=== PATIENT | female | born 1995 | race Caucasian/White ===

== ENCOUNTER 2017-09-13 09:51 | Inpatient (IN) | payer SELFPAY ==
[2017-09-13] MEDS ORDERED: RINGERS SOLUTION,LACTATED 1,000 ML IV PRN (10:07)
[2017-09-13] MEDS ORDERED: PENICILLIN G POTASSIUM 5,000,000 UNIT in DEXTROSE 5%-WATER 100 ML IV ONE (10:07)
[2017-09-13] MEDS ORDERED: PENICILLIN G-K 5 MILLION UNIT VIAL ONE ×2 (10:11→13:42)
[2017-09-13] MEDS ORDERED: OXYTOCIN/NORMAL SALINE 20 UNIT/1,000 ML RTUINJ IV PRN ×2 (10:19→14:24)
[2017-09-13] MEDS ORDERED: MISOPROSTOL 0.2 MG TABLET ONE (11:14)
[2017-09-13] MEDS ORDERED: OXYTOCIN/NORMAL SALINE 20 UNIT/1,000 ML RTUINJ ONE (11:15)
[2017-09-13] MEDS ORDERED: LIDOCAINE 1% INJ-PF (10 MG/ML) 30 ML SDV ONE (11:15)
[2017-09-13 12:11] LABS: HEMATOCRIT 39.8 % (36.0-47.0); HEMOGLOBIN 13.4 g/dL (12.0-15.5); MEAN CORPUSCULAR HEMOGLOBIN 28.2 pg (27.0-33.4); MEAN CORPUSCULAR HGB CONC 33.6 g/dL (32.0-36.0); MEAN CORPUSCULAR VOLUME 84 fl (80-97); PLATELET COUNT 202 10^3/uL (150-450); RED BLOOD COUNT 4.74 10^6/uL (3.72-5.28); RED CELL DISTRIBUTION WIDTH 15.8 % (11.5-14.0); WHITE BLOOD COUNT 15.1 10^3/uL (4.0-10.5)
[2017-09-13 12:30] LABS: ABSOLUTE LYMPHOCYTES# (MANUAL) 0.6 10^3/uL (0.5-4.7); ABSOLUTE MONOCYTES # (MANUAL) 0.8 10^3/uL (0.1-1.4); ABSOLUTE NEUTROPHILS# (MANUAL) 13.7 10^3/uL (1.7-8.2); ANISOCYTOSIS SLIGHT; BASOPHILS % (MANUAL) 0 % (0-2); EOSINOPHILS % (MANUAL) 0 % (0-6); LYMPHOCYTES % (MANUAL) 4 % (13-45); MONOCYTES % (MANUAL) 5 % (3-13); PLATELET COMMENT ADEQUATE; SEGMENTED NEUTROPHILS % (MAN) 91 % (42-78); TOTAL CELLS COUNTED 100
[2017-09-13] MEDS ORDERED: PENICILLIN G POTASSIUM 2,500,000 UNIT in DEXTROSE 5%-WATER 50 ML IV SCH (14:08)
[2017-09-13] MEDS ORDERED: DIBUCAINE 1% OINTMENT 28 GM TP PRN (14:24)
[2017-09-13] MEDS ORDERED: PSEUDOEPHEDRINE HCL 30 MG TABLET PO PRN (14:24)
[2017-09-13] MEDS ORDERED: GLYCERIN/WITCH HAZEL LEAF 1 EACH MED..PAD TP PRN (14:24)
[2017-09-13] MEDS ORDERED: PROMETHAZINE HCL 25 MG SUPP.RECT PR PRN (14:24)
[2017-09-13] MEDS ORDERED: PROMETHAZINE HCL 25 MG TABLET PO PRN (14:24)
[2017-09-13] MEDS ORDERED: DIPH/PERTUSS(ACELL)/TETANUS VAC/PF 0.5 ML SYR (>=10YO) IM PRN (14:24)
[2017-09-13] MEDS ORDERED: NA PHOS,M-B/NA PHOS,DI-BA (ADULT) 133 ML ENEMA PR PRN (14:24)
[2017-09-13] MEDS ORDERED: MEASLES,MUMPS&RUBELLA VACC/PF 0.5 ML VIAL SUBCUT PRN (14:24)
[2017-09-13] MEDS ORDERED: DIPHENHYDRAMINE HCL 25 MG CAPSULE PO PRN (14:24)
[2017-09-13] MEDS ORDERED: MAGNESIUM HYDROXIDE SUSP 30 ML UDCUP PO PRN (14:24)
[2017-09-13] MEDS ORDERED: ACETAMINOPHEN 325 MG TABLET PO PRN (14:24)
[2017-09-13] MEDS ORDERED: ZOLPIDEM TARTRATE 5 MG TABLET PO PRN (14:24)
[2017-09-13] MEDS ORDERED: PROMETHAZINE HCL INJ 25 MG/1 ML VIAL IV PRN (14:24)
[2017-09-13] MEDS ORDERED: ACETAMINOPHEN WITH CODEINE #3 TABLET PO PRN ×2 (14:24)
[2017-09-13] MEDS ORDERED: BENZOCAINE/MENTHOL AEROSOL SPRAY 56 ML TOP PRN (14:24)
--- NOTE | 2017-09-13 15:06 | Warning Signs in Babies ---
VOD Warning Signs Datetime Report Generated by [facility]: 09/13/2017 15:06 VOD#608 -Warning Signs in Babies: Viewed with Parent(s)/Family (09/13/2017 10:17:Mary Landry RN)
--- NOTE | 2017-09-13 16:04 | Delivery Summary ---
Del Sum A-C Datetime Report Generated by CPN: 09/13/2017 16:04 DELIVERY PERSONNEL DELIVERY PERSONNEL: [id number] Delivery Doctor:: Jenelle Iglesias CNM Labor and Delivery Nurse:: Mary Landry RNfiber optics technician Nurse:: Marianne Mendoza RN Inspector Hot Forgings/RECREATION PROGRAM SPECIALIST: Latoya Godfrey, ST Additional Personnel: : MATY Flores MATERNAL INFORMATION Delivery Anesthesia: None Medications During Delivery: none Medications After Delivery: Pitocin Bolus-Please Comment; Pitocin Drip 20 Units/1000ml NSS Estimated Blood Loss (ml): 150 Maternal Complications: None Provider Comments: KING VIABLE MALE WITH SPONTANEOUS CRY. TIGHT NUCHAL CORD AND RIGHT NUCHAL HAND, BABY SOMMERSAULTED. CORD DOUBLE CLAMPED AND CUT BY FOB. [place] SPONTANEOUS AND INTACT WITH 3VC. NO LACERATIONS. MOTHER AND INFANT STABLE IN L_D #6. LABOR SUMMARY EDC: 09/27/2017 00:00 No. Babies in Womb: 1 Attempted: No Labor Anesthesia: None LABOR INFORMATION Reason for Induction: Not Applicable Onset of Labor: 09/13/2017 08:30 Complete Dilatation: 09/13/2017 13:55 Oxytocin: N/A Group B Beta Strep: positive Antibiotics # of Doses: 1 Antibiotics Time of Last Dose: 4 Name of Antibiotic Given: PCN Steroids Given: None Reason Steroids Not Administered: Not Applicable MEMBRANES Membranes Rupture Method: Spontaneous Rupture of Membranes: 09/13/2017 08:30 Length of Rupture (hr): 5.70 Amniotic Fluid Color: Clear Amniotic Fluid Amount: Moderate Amniotic Fluid Odor: Normal STAGES OF LABOR Stage 1 hr: 5 Stage 1 min: 25 Stage 2 hr: 0 Stage 2 min: 17 Stage 3 hr: 0 Stage 3 min: 8 Total Time in Labor hr: 5 Total Time in Labor min: 50 VAGINAL DELIVERY Episiotomy: None Laceration #1: None Laceration Extension #1: N/A Laceration Repair: Not Applicable Sponge Count Correct: N/A Sharps Count Correct: N/A CSECTION DELIVERY Primary Indication: N/A Secondary Indication: N/A CSection Incidence: N/A Labor: N/A Elective: N/A CSection Incision: N/A BABY A INFORMATION Infant Delivery Date/Time: 09/13/2017 14:12 Method of Delivery: Vaginal Born in Route : No : N/A Forceps: N/A Vacuum Extraction: N/A Shoulder Dystocia : No PRESENTATION/POSITION BABY A Presentation: Cephalic Cephalic Presentation: Vertex Vertex Position: Left Occipital Anterior Breech Presentation: N/A PLACENTA INFORMATION BABY A Placenta Delivery Time : 09/13/2017 14:20 Placenta Method of Delivery: Spontaneous Placenta Status: Delivered SCORES BABY A Heart Rate 1 min: >100 bpm Resp Effort 1 min: Good Cry Reflex Irritability 1 min: Cough or Sneeze or Pulls Away Muscle Tone 1 min: Active Motion Color 1 min: Blue/Pale Resuscitation Effort 1 min: Tactile Stimulation SCORE 1 MIN: 8 Heart Rate 5 min: >100 bpm Resp Effort 5 min: Good Cry Reflex Irritability 5 min: Cough or Sneeze or Pulls Away Muscle Tone 5 min: Active Motion Color 5 min: Body [place], Extremities Blue Resuscitation Effort 5 min: Tactile Stimulation SCORE 5 MIN: 9 INFORMATION BABY A Gestational Age at Delivery: 38.0 Gestational Status: Early Term- 37- 38.6 Weeks Infant Outcome : Liveborn Infant Condition : Stable Infant Sex: Male IDENTIFICATION BABY A Verification Date/Time: 09/13/2017 14:39 ID Band Number: [id number] Mother's Name Verified: Yes Infant RN Verifying Infant: A Landry RN O [place] RN WEIGHT/LENGTH BABY A Infant Birthweight (gm): 3575 Weight (lb): 7 Weight (oz): 14 Infant Length (in): 20.50 Infant Length (cm): 52.07 CORD INFORMATION BABY A No. Cord Vessels: 3 Nuchal Cord : Around Neck x1, Loose Nuchal Cord- Other: around hand Cord Blood Taken: Yes-For Eval (Mom's Blood Type - or O+) Suction: None ASSESSMENT BABY A Complications: Multiple Variable Decels Physical Findings at Delivery: Molding of the Head Respirations: Appears Normal Skin to Skin: Yes News Department Intern/ALS Called : No Infant Care By: J Olley RN Transferred To: Remains with Mother BABY B INFORMATION : N/A SIGNATURES Assignment: Sandi Vivar MD Signature: with User ID: [email or web address] : with User ID: [email or web address] : I was personally available for consultation and serving as supervising physician for the MLP.
--- NOTE | 2017-09-13 16:18 | Admission Physical ---
Datetime Report Generated by CPN: 09/13/2017 16:17 CURRENT ADMISSION Chief Complaint: Suspected Ruptured Membranes Chief Complaint Other: SROM at 0830, clear Indication for Induction: Not Applicable Indication for Induction: Term, Intrauterine Admit Plan: Admit to Unit; Initiate Labor Protocol ALLERGIES Medication Allergies: No Latex: No Latex Allergies OBSTETRICAL HISTORY EDC: 09/27/2017 00:00 : 1 Para: 0 Term: 0 : 0 SAB: 0 IAB: 0 Ectopic: 0 Livin Cesareans: 0 VBACs: 0 Multiple Births: 0 Gestational Diabetes: Yes Rh Sensitization: No Incompetent Cervix: No MARIANA: No Infertility: No ART Treatment: No Uterine Anomaly: No IUGR: No Hx Previous C/S: No Macrosomia: No Hx Loss/Stillborn: No PIH: No Hx : No Placenta Previa/Abruption: No Depression/PP Depression: No PTL/PROM: No Post Hemorrhage: No Current Procedures: Ultrasound; NST Obstetrical History Comments: G1: current, GDM diet controlled SEE RECORDS Alcohol: No Marijuana : No Cocaine: No Other Illicit Drugs: No Cigarettes: Never Smoker. [id number] MEDICAL HISTORY Diabetes: Yes Diabetes Type: Gestational Diabetes Blood Transfusion: No Pulmonary Disease (Asthma, TB): No Breast Disease: No Hypertension: No Associate School Psychologist Surgery: No Heart Disease: Yes Hosp/Surgery: Yes Autoimmune Disorder: No Anesthetic Complications: No Kidney Disease: No Abnormal Pap Smear: No Neuro/Epilepsy: No Psychiatric Disorders: No Other Medical Diseases: No Hepatitis/Liver Disease: No Significant Family History: No Varicosities/Phlebitis: No Trauma/Violence : No Thyroid Dysfunction: No Medical History Comments: tonsillectomy 2005, mitral valve prolapse INFECTIOUS HISTORY Gonorrhea: No Genital Herpes: No Chlamydia: No Tuberculosis: No Syphilis: No Hepatitis: No HIV/AIDS Exposure: No Rash or Viral Illness: No HPV: No PHYSICAL EXAM General: Normal HEENT: Normal Neurologic: Normal Thyroid: Deferred Heart: Normal Lungs: Normal Breast: Deferred Back: Normal Abdomen: Normal Genitourinary Exam: Normal Extremities: Normal DTRs: Deferred Pelvic Type: Adequate Physical Exam Comments: gross rupture of membranses, clear Vital Signs: Reviewed VAGINAL EXAM Dilatation: 6 Effacement: 80 Station: -1 Contraction Comments: q2-4 mins MEMBRANES Pooling: Positive Membranes: Ruptured FETUS A EGA: 38.0 Monitoring: External US FHR- Baseline: 135 Variability: Moderate 6-25bpm Accelerations: 15X15 Decelerations: Early FHR Category: Category I Estimated Weight (gm): 3500 Presentation: Vertex Admit Comment: G1 at 38w with gross rupture of membranes, clear at 0830 today. GBS positive. PCN started for GBS prophylaxis. regular contractions PLANS FOR LABOR AND DELIVERY Labor and Delivery: None Pain Management: None Feeding Preference: Breast Benefit of Breast Feed Discussed: Yes Circumcision: Yes INFORMED CONSENT Assignment: Sandi Vivar MD Signature: with User ID: [email or web address] : with User ID: [email or web address]
[2017-09-13] MEDS: DOCUSATE SODIUM 100 MG CAPSULE PO SCH (18:02)
[2017-09-13] MEDS: FERROUS SULFATE 325 MG TABLET PO SCH (18:02)
[2017-09-13] MEDS: IBUPROFEN 800 MG TABLET PO SCH (22:08)
[2017-09-13] MEDS: FAMOTIDINE 20 MG TABLET PO SCH (22:08)
[2017-09-14] MEDS: IBUPROFEN 800 MG TABLET PO SCH ×3 (05:05→21:13)
[2017-09-14 08:20] LABS: HEMATOCRIT 36.9 % (36.0-47.0); HEMOGLOBIN 12.4 g/dL (12.0-15.5); MEAN CORPUSCULAR HEMOGLOBIN 28.8 pg (27.0-33.4); MEAN CORPUSCULAR HGB CONC 33.8 g/dL (32.0-36.0); MEAN CORPUSCULAR VOLUME 85 fl (80-97); PLATELET COUNT 177 10^3/uL (150-450); RED BLOOD COUNT 4.32 10^6/uL (3.72-5.28); RED CELL DISTRIBUTION WIDTH 15.4 % (11.5-14.0); WHITE BLOOD COUNT 11.5 10^3/uL (4.0-10.5)
--- NOTE | 2017-09-14 08:27 | PDOC PROGRESS REPORT ---
Subjective-OB Progress Note for:: 09/14/17 Subjective: Doing well, hsb at BS, voiding, , eating well Physical Exam (OB) Vital Signs: Temp Pulse Resp BP Pulse Ox 98.5 F 82 14 118/65 95 09/13/17 20:00 09/13/17 20:00 09/13/17 20:00 09/13/17 20:00 09/13/17 20:00 Intake & Output 09/13/17 09/14/17 09/15/17 06:59 06:59 06:59 Weight 80.4 kg - Lochia Lochia Amount: Small 10-25 ml Lochia Color: Rubra/Red - Abdomen Description: Soft Hernia Present: No Fundal Description: Firm, Midline Fundal Height: u/u - u/2 Objective-Diagnostic Laboratory: 09/14/17 07:20 09/13/17 09/13/17 09/14/17 11:58 11:58 07:20 WBC 15.1 H 11.5 H RBC 4.74 4.32 Hgb 13.4 12.4 Hct 39.8 36.9 MCV 84 85 MCH 28.2 28.8 MCHC 33.6 33.8 RDW 15.8 H 15.4 H Plt Count 202 177 Seg Neutrophils % Not Reportable Lymphocytes % Not Reportable Monocytes % Not Reportable Eosinophils % Not Reportable Basophils % Not Reportable Absolute Neutrophils Not Reportable Absolute Lymphocytes Not Reportable Absolute Monocytes Not Reportable Absolute Eosinophils Not Reportable Absolute Basophils Not Reportable Blood Type O POSITIVE Antibody Screen NEGATIVE Assessment and Plan(PN) - Assessment and Plan (1) Gestational diabetes mellitus (GDM) in childbirth, diet controlled Is this a current diagnosis for this admission?: Yes (2) Vaginal delivery Is this a current diagnosis for this admission?: Yes (3) Group B Streptococcus carrier state affecting Is this a current diagnosis for this admission?: Yes - Time Spent with Patient Time with patient: Less than 15 minutes Medications reviewed and adjusted accordingly: Yes - Disposition Anticipated Discharge: Home Within: within 24 hours
[2017-09-14] MEDS: PRENATAL VITAMIN W DHA CAPSULE PO SCH (09:45)
[2017-09-14] MEDS: FAMOTIDINE 20 MG TABLET PO SCH ×2 (09:48→21:14)
[2017-09-14] MEDS: DOCUSATE SODIUM 100 MG CAPSULE PO SCH ×2 (09:48→18:08)
[2017-09-14] MEDS: SENNOSIDES/DOCUSATE 8.6-50 MG 1 EACH TABLET PO SCH (09:48)
[2017-09-14] MEDS: FERROUS SULFATE 325 MG TABLET PO SCH ×2 (09:48→18:08)
[2017-09-15] MEDS: IBUPROFEN 800 MG TABLET PO SCH (06:16)
--- NOTE | 2017-09-15 08:50 | PDOC DISCHARGE SUMMARY ---
Final Diagnosis Discharge Date: 09/15/17 - Final Diagnosis (1) Active labor at term Is this a current diagnosis for this admission?: Yes (2) Gestational diabetes mellitus (GDM) in childbirth, diet controlled Is this a current diagnosis for this admission?: Yes (3) Group B Streptococcus carrier state affecting Is this a current diagnosis for this admission?: Yes (4) Vaginal delivery Is this a current diagnosis for this admission?: Yes Discharge Data - Discharge Medication Prescriptions: Docusate Sodium [Colace 100 mg Capsule] 100 mg PO BID #60 capsule Ferrous Sulfate [Feosol 325 mg Tablet] 325 mg PO BID #60 tablet Ibuprofen [Motrin 800 mg Tablet] 800 mg PO Q8 #60 tablet Home Medications: Vit,Calc76/Iron/Folic [Pnv 29-1 Tablet] 1 each PO DAILY 09/13/17 Docusate Sodium [Colace 100 mg Capsule] 100 mg PO BID #60 capsule 09/15/17 Ferrous Sulfate [Feosol 325 mg Tablet] 325 mg PO BID #60 tablet 09/15/17 Ibuprofen [Motrin 800 mg Tablet] 800 mg PO Q8 #60 tablet 09/15/17 Gestational Age: 38 Reason(s) for Admission: Onset of Labor, Gestional Diabetes, Group B Strep Positive Procedures: NST Intrapartum Procedure(s): Spontaneous Vaginal Delivery - [place] Data Baby 1 Male at 1 minute: 8 at 5 minutes: 9 Weight: 3575 kg Home with Mother: Yes Complications: No - Diagnosis Test Laboratory: Temp Pulse Resp BP Pulse Ox 97.5 F 79 16 113/68 100 09/14/17 07:36 09/14/17 07:36 09/14/17 07:36 09/14/17 07:36 09/14/17 07:36 09/13/17 09/14/17 11:58 07:20 RBC 4.74 4.32 Hgb 13.4 12.4 Hct 39.8 36.9 - Discharge information/Instructions Discharge Activity: Activity As Tolerated, Pelvic Rest, No tub bath Discharge Diet: Regular Disposition: HOME, SELF-CARE Follow [facility] with: [facility] in: 4, Weeks
[2017-09-15 09:35] VITALS: BP 118/65
[2017-09-15] MEDS: PRENATAL VITAMIN W DHA CAPSULE PO SCH (10:44)
[2017-09-15] MEDS: DOCUSATE SODIUM 100 MG CAPSULE PO SCH (10:45)
[2017-09-15] MEDS: SENNOSIDES/DOCUSATE 8.6-50 MG 1 EACH TABLET PO SCH (10:45)
[2017-09-15] MEDS: FAMOTIDINE 20 MG TABLET PO SCH (10:45)
[2017-09-15] MEDS: FERROUS SULFATE 325 MG TABLET PO SCH (10:45)
== END 2017-09-15 14:06 | disposition home or self-care (01) | DRG 775 ==
LOC: LC 09:51 → LR 10:47 → 2S 16:13
PROVIDERS: ADMIT Student in an Organized Health Care Education/Training Program; ATTEND Student in an Organized Health Care Education/Training Program
PROC: 10E0XZZ Delivery of Products of Conception, External Approach (ICD-10-PCS; principal; 2017-09-13)
PROC: 4A1HXCZ Monitoring of Products of Conception, Cardiac Rate, External Approach (ICD-10-PCS; 2017-09-13)
DX: O69.1XX0 Labor and delivery complicated by cord around neck, with compression, not applicable or unspecified (principal); O76 Abnormality in fetal heart rate and rhythm complicating labor and delivery; O24.420 Gestational diabetes mellitus in childbirth, diet controlled; O99.824 Streptococcus B carrier state complicating childbirth; Z3A.38 38 weeks gestation of pregnancy; Z37.0 Single live birth
CPT/HCPCS: 36415; 82962; 85025; 85027; 86592; 86701; 86850; 86900; 86901; J2540; J2590; J3490